=== PATIENT | male | born 1970 | race Caucasian/White ===

== ENCOUNTER 2023-09-24 19:12 | Emergency (ER) | payer MEDICAID ==
[~2023-09-24] VITALS: Ht 177.8 cm; Wt 81.6 kg
[2023-09-24 19:20] VITALS: BP 139/90; PULSE 80; RESP 20; TEMP 97.4; O2SAT 97
[2023-09-24 20:55] LABS: BASOPHILS % (AUTO) 0.2 % (0.0-2.0); HEMATOCRIT 43.8 % (36-52); HEMOGLOBIN 14.1 g/dL (12.0-18.0); LYMPHOCYTES # (AUTO) 0.6 K/uL (2.0-11.5); LYMPHOCYTES % (AUTO) 3.6 % (20.5-51.1); MEAN CORPUSCULAR HEMOGLOBIN 26 pg (27-31); MEAN CORPUSCULAR HGB CONC 32 g/dL (33-37); MEAN CORPUSCULAR VOLUME 82.1 fL (80-94); MONOCYTES # (AUTO) 0.9 K/uL (0.8-1.0); NEUTROPHILS # (AUTO) 13.7 K/uL (1.8-7.7); NEUTROPHILS % (AUTO) 90.2 % (42.2-75.2); PLATELET COUNT (AUTO) 310 K/uL (140-450); RED BLOOD CELL COUNT(AUTO) 5.33 MIL/uL (4.20-6.10); RED CELL DISTRIBUTION WIDTH 21.4 % (11.6-13.7); WHITE BLOOD COUNT (AUTO) 15.2 K/uL (4.8-10.8)
[2023-09-24 21:16] LABS: ALANINE AMINOTRANSFERASE 19 U/L (12-78); ALBUMIN 4.2 g/dL (3.4-5.0); ALKALINE PHOSPHATASE 82 U/L (50-136); ANION GAP 13.6 (8-16); ASPARTATE AMINOTRANSFERASE 14 U/L (15-37); CALCIUM 8.9 mg/dL (8.5-10.1); CARBON DIOXIDE 33.7 mmol/L (21-32); CHLORIDE 93 mmol/L (98-107); GFR ARICAN-AMERICAN 101 mL/min (>90); GFR NON ARICAN-AMERICAN 84 mL/min (>90); GLUCOSE 199 mg/dL (74-106); LIPASE 14 U/L (16-77); POTASSIUM 3.3 mmol/L (3.5-5.1); SODIUM SERUM 137 mmol/L (136-145); TOTAL BILIRUBIN 1.2 mg/dL (0.0-1.0); TOTAL PROTEIN, SERUM 8.4 g/dL (6.4-8.2); UREA NITROGEN, BLOOD 19 mg/dL (7-18)
[2023-09-25] MEDS ORDERED: NACL 0.9% 1,000 ML IV ONE (01:15)
[2023-09-25] MEDS ORDERED: ONDANSETRON 4 MG/2 ML VIAL IVP ONE (01:15)
[2023-09-25] MEDS ORDERED: KETOROLAC 30 MG/ML VIAL IVP ONE (01:15)
[2023-09-25] MEDS ORDERED: MORPHINE SULFATE 4 MG/ML SYR IVP ONE (01:40)
[2023-09-25] MEDS ORDERED: OMEP40EC24 PO (03:00)
[2023-09-25] MEDS ORDERED: ONDA8TAB87 PO (03:00)
[2023-09-25] MEDS ORDERED: IBUP-2213 PO (03:00)
[2023-09-25 03:22] VITALS: BP 99/68; PULSE 79; RESP 16; TEMP 98; O2SAT 95
== END 2023-09-25 03:22 | disposition home or self-care (01) ==
LOC: MED 19:12
DX: R10.13 Epigastric pain (principal); R11.2 Nausea with vomiting, unspecified; R07.9 Chest pain, unspecified; R06.02 Shortness of breath; F17.200 Nicotine dependence, unspecified, uncomplicated; F12.90 Cannabis use, unspecified, uncomplicated; F15.90 Other stimulant use, unspecified, uncomplicated
CPT/HCPCS: 36415; 80053; 83690; 84484; 85025; 96361; 96374; 96375; 99284; J1885; J2270; J2405; J7030

== ENCOUNTER 2023-09-25 06:53 | Inpatient (IN) | payer MEDICAID ==
[~2023-09-25] VITALS: Ht 177.8 cm; Wt 80.7 kg
[~2023-09-25 06:53] MED LIST: IBUP-2213 PO; OMEP40EC24 PO; ONDA8TAB87 PO
[2023-09-25 07:06] VITALS: BP 103/71; PULSE 87; RESP 17; TEMP 97.7; O2SAT 97
[2023-09-25] MEDS ORDERED: DICYCLOMINE HCL LIQUID 20 MG, ALUMINUM HYD/MAG/SIMETHICONE 30 ML, LIDOCAINE VISCOUS 2% ... PO ONE ×3 (07:25)
[2023-09-25] MEDS ORDERED: HALOPERIDOL IM 5 MG/ML VIAL IM ONE (07:25)
[2023-09-25] MEDS ORDERED: DICYCLOMINE HCL LIQUID 10 MG/5 ML UDC ONE (08:11)
[2023-09-25] MEDS ORDERED: ALUMINUM HYD/MAG/SIMETHICONE 30 ML UDC ONE (08:11)
[2023-09-25] MEDS ORDERED: LIDOCAINE MPF 1% 10 ML ONE (09:19)
[2023-09-25] MEDS ORDERED: KETOROLAC 30 MG/ML VIAL IVP ONE (09:40)
[2023-09-25] MEDS ORDERED: NACL 0.9% 1,000 ML IV ONE (09:45)
[2023-09-25] MEDS ORDERED: LIDOCAINE MPF 1% 10 MG/ML VIAL INJ ONE ×2 (10:10→10:25)
[2023-09-25] MEDS ORDERED: VANCOMYCIN 1,000 MG in DEXTROSE 5% 250 ML IV ONE (11:25)
[2023-09-25] MEDS ORDERED: cefTRIAXone 1,000 MG VIAL ONE (11:32)
[2023-09-25] MEDS ORDERED: VANCOMYCIN 1,000 MG VIAL ONE (12:33)
[2023-09-25] MEDS ORDERED: NACL 0.9% 2,000 ML IV ONE (12:35)
[2023-09-25 15:56] LABS: HEMATOCRIT 36.8 % (36-52); LYMPHOCYTES # (AUTO) 0.5 K/uL (2.0-11.5); LYMPHOCYTES % (AUTO) 9.3 % (20.5-51.1); MEAN CORPUSCULAR HEMOGLOBIN 27 pg (27-31); MEAN CORPUSCULAR HGB CONC 33 g/dL (33-37); MEAN CORPUSCULAR VOLUME 81.3 fL (80-94); MONOCYTES # (AUTO) 0.7 K/uL (0.8-1.0); MONOCYTES % (AUTO) 11.3 % (1.7-9.3); NEUTROPHILS # (AUTO) 4.7 K/uL (1.8-7.7); NEUTROPHILS % (AUTO) 79.4 % (42.2-75.2); PLATELET COUNT (AUTO) 189 K/uL (140-450); RED BLOOD CELL COUNT(AUTO) 4.52 MIL/uL (4.20-6.10); RED CELL DISTRIBUTION WIDTH 21.3 % (11.6-13.7); WHITE BLOOD COUNT (AUTO) 5.9 K/uL (4.8-10.8)
[2023-09-25 16:10] LABS: ALBUMIN 2.6 g/dL (3.4-5.0); ANION GAP 10.6 (8-16); CALCIUM 7.3 mg/dL (8.5-10.1); CARBON DIOXIDE 28.8 mmol/L (21-32); CREATININE 1.4 mg/dL (0.6-1.3); POTASSIUM 3.4 mmol/L (3.5-5.1); TOTAL BILIRUBIN 0.8 mg/dL (0.0-1.0); TOTAL PROTEIN, SERUM 5.5 g/dL (6.4-8.2)
[2023-09-25 17:29] LABS: APPEARANCE,URINE CLEAR (CLEAR); BILIRUBIN,URINE 1+ (NEGATIVE); BLOOD, URINE 2+ (NEGATIVE); LEUKOCYTE ESTERASE ,URINE NEGATIVE (NEGATIVE); NITRITE, URINE POSITIVE (NEGATIVE); PROTEIN,URINE 2+ (NEGATIVE); UGLUCOSE NEGATIVE (NEGATIVE); UROBILINOGEN,URINE 0.2 EU/dL (0.2 - 1)
[2023-09-25 17:39] LABS: ICTOTEST NEGATIVE (NEGATIVE)
[2023-09-25 17:41] LABS: BACTERIA,URINE FEW /HPF (None Seen); COLOR,URINE ORANGE (YELLOW); SQUAMOUS EPITHELIAL CELL,UR 0-3 (FEW) /LPF (0-3 (FEW)); WBC,URINE 0-5 /HPF (0-5)
[2023-09-25 19:34] VITALS: O2SAT 100
[2023-09-25 21:56] VITALS: O2SAT 97
[2023-09-26] VITALS (9 sets, daily range): BP systolic 109–120; BP diastolic 65–69; PULSE 72–95; RESP 18–20; TEMP 98.3–98.9; O2SAT 92–100
[2023-09-26] MEDS ORDERED: ONDANSETRON 4 MG/2 ML VIAL IVP PRN (10:10)
[2023-09-26 10:49] LABS: HEMATOCRIT 36.8 % (36-52); HEMOGLOBIN 12.1 g/dL (12.0-18.0); LYMPHOCYTES # (AUTO) 0.2 K/uL (2.0-11.5); LYMPHOCYTES % (AUTO) 3.1 % (20.5-51.1); MEAN CORPUSCULAR HEMOGLOBIN 27 pg (27-31); MEAN CORPUSCULAR HGB CONC 33 g/dL (33-37); MEAN CORPUSCULAR VOLUME 81.7 fL (80-94); MONOCYTES # (AUTO) 0.6 K/uL (0.8-1.0); MONOCYTES % (AUTO) 7.6 % (1.7-9.3); NEUTROPHILS % (AUTO) 89.3 % (42.2-75.2); PLATELET COUNT (AUTO) 182 K/uL (140-450); WHITE BLOOD COUNT (AUTO) 7.8 K/uL (4.8-10.8)
[2023-09-26 11:12] LABS: ANION GAP 10.2 (8-16); CREATININE 0.9 mg/dL (0.6-1.3); POTASSIUM 3.2 mmol/L (3.5-5.1)
[2023-09-26] MEDS: DEXT 5% / NACL 0.45% 1,000 ML IV SCH ×2 (13:00→20:10)
[2023-09-26] MEDS: MORPHINE SULFATE 4 MG/ML SYR IVP PRN ×2 (13:10→20:00)
[2023-09-26] MEDS: CLINDAMYCIN 900MG/D5W PM 50 ML IV SCH ×2 (13:11→20:02)
[2023-09-27] VITALS (9 sets, daily range): BP systolic 112–121; BP diastolic 52–78; PULSE 67–114; RESP 18–19; TEMP 98.2–99.5; O2SAT 94–100
[2023-09-27] MEDS: MORPHINE SULFATE 4 MG/ML SYR IVP PRN ×2 (01:09→13:28)
[2023-09-27] MEDS: CLINDAMYCIN 900MG/D5W PM 50 ML IV SCH ×3 (04:55→20:18)
[2023-09-27] MEDS: DEXT 5% / NACL 0.45% 1,000 ML IV SCH ×2 (06:10→09:23)
[2023-09-27] MEDS ORDERED: POTASSIUM CHLORIDE 10 MEQ TABER PO ONE (06:25)
[2023-09-27 07:02] LABS: BASOPHILS % (AUTO) 0.1 % (0.0-2.0); EOSINOPHILS % (AUTO) 0.1 % (0.0-4.0); HEMATOCRIT 35.7 % (36-52); HEMOGLOBIN 11.9 g/dL (12.0-18.0); LYMPHOCYTES # (AUTO) 0.4 K/uL (2.0-11.5); MEAN CORPUSCULAR HEMOGLOBIN 27 pg (27-31); MEAN CORPUSCULAR HGB CONC 33 g/dL (33-37); MEAN CORPUSCULAR VOLUME 81.6 fL (80-94); MONOCYTES # (AUTO) 0.7 K/uL (0.8-1.0); MONOCYTES % (AUTO) 7.3 % (1.7-9.3); NEUTROPHILS # (AUTO) 8.4 K/uL (1.8-7.7); PLATELET COUNT (AUTO) 215 K/uL (140-450); RED BLOOD CELL COUNT(AUTO) 4.37 MIL/uL (4.20-6.10); RED CELL DISTRIBUTION WIDTH 20.7 % (11.6-13.7); WHITE BLOOD COUNT (AUTO) 9.5 K/uL (4.8-10.8)
[2023-09-27 07:07] LABS: ANION GAP 11.2 (8-16); CALCIUM 7.7 mg/dL (8.5-10.1); CREATININE 0.8 mg/dL (0.6-1.3); POTASSIUM 3.2 mmol/L (3.5-5.1)
[2023-09-27 08:00] LABS: PHOSPHORUS 2.1 mg/dL (2.5-4.9)
[2023-09-27 08:42] LABS: LYMPHOCYTES % (AUTO) 4.3 % (20.5-51.1); NEUTROPHILS % (AUTO) 88.2 % (42.2-75.2)
[2023-09-27] MEDS: MORPHINE SULFATE 2 MG/ML SYR IVP PRN ×2 (09:18→18:44)
[2023-09-27] MEDS ORDERED: POTASSIUM PHOSPHATE 15 MM in NACL 0.9% 250 ML IV SCH (13:00)
[2023-09-28] VITALS: BP 109/74; PULSE 82; PULSE 91; RESP 18; TEMP 97.9; O2SAT 95
[2023-09-28] MEDS: DEXT 5% / NACL 0.45% 1,000 ML IV SCH ×3 (02:10→22:42)
[2023-09-28 04:00] VITALS: BP 118/76; PULSE 83; PULSE 88; RESP 18; TEMP 97.9; O2SAT 97
[2023-09-28] MEDS: MORPHINE SULFATE 4 MG/ML SYR IVP PRN ×4 (05:35→21:27)
[2023-09-28] MEDS: CLINDAMYCIN 900MG/D5W PM 50 ML IV SCH ×3 (05:36→20:57)
[2023-09-28 07:10] LABS: BASOPHILS % (AUTO) 0.1 % (0.0-2.0); EOSINOPHILS % (AUTO) 0.2 % (0.0-4.0); HEMATOCRIT 34.5 % (36-52); HEMOGLOBIN 11.4 g/dL (12.0-18.0); LYMPHOCYTES # (AUTO) 0.5 K/uL (2.0-11.5); LYMPHOCYTES % (AUTO) 4.2 % (20.5-51.1); MEAN CORPUSCULAR HEMOGLOBIN 27 pg (27-31); MEAN CORPUSCULAR HGB CONC 33 g/dL (33-37); MEAN CORPUSCULAR VOLUME 81.1 fL (80-94); MONOCYTES # (AUTO) 1.1 K/uL (0.8-1.0); MONOCYTES % (AUTO) 9.7 % (1.7-9.3); NEUTROPHILS # (AUTO) 10.2 K/uL (1.8-7.7); NEUTROPHILS % (AUTO) 85.8 % (42.2-75.2); PLATELET COUNT (AUTO) 241 K/uL (140-450); RED BLOOD CELL COUNT(AUTO) 4.25 MIL/uL (4.20-6.10); RED CELL DISTRIBUTION WIDTH 20.8 % (11.6-13.7); WHITE BLOOD COUNT (AUTO) 11.9 K/uL (4.8-10.8)
[2023-09-28 08:00] VITALS: BP 107/78; PULSE 82; PULSE 86; RESP 20; TEMP 97.9; O2SAT 98
[2023-09-28 08:03] LABS: ALBUMIN 1.9 g/dL (3.4-5.0); ANION GAP 12.8 (8-16); CALCIUM 7.9 mg/dL (8.5-10.1); CARBON DIOXIDE 26.4 mmol/L (21-32); CREATININE 0.8 mg/dL (0.6-1.3); POTASSIUM 3.2 mmol/L (3.5-5.1); TOTAL BILIRUBIN 0.6 mg/dL (0.0-1.0)
[2023-09-28] MEDS: MORPHINE SULFATE 2 MG/ML SYR IVP PRN ×2 (09:45→15:35)
[2023-09-28 12:00] VITALS: BP 123/78; PULSE 84; PULSE 87; PULSE 89; RESP 20; TEMP 97.5; O2SAT 97
[2023-09-28] MEDS ORDERED: POTASSIUM CHLORIDE 10 MEQ TABER PO PRN (14:15)
[2023-09-28 16:00] VITALS: BP 119/80; PULSE 83; PULSE 84; PULSE 90; RESP 20; TEMP 97.8; O2SAT 97
[2023-09-28] MEDS: PIPERACILLIN/TAZOBACTAM 3.375 GM in DEXTROSE 5% 50 ML IV SCH (17:36)
[2023-09-28] MEDS ORDERED: KCL 20 MEQ IN 100 mL PREMIX 100 ML IV SCH (18:00)
[2023-09-28 20:00] VITALS: BP 113/71; PULSE 83; PULSE 90; PULSE 97; RESP 17; RESP 20; TEMP 97.2; O2SAT 97
[2023-09-28] MEDS: PANTOPRAZOLE 40 MG INJ VIAL IVP SCH (22:39)
[2023-09-29] VITALS (8 sets, daily range): BP systolic 107–134; BP diastolic 66–76; PULSE 62–136; RESP 17–22; TEMP 97.1–98.2; O2SAT 95–100
[2023-09-29] MEDS: PIPERACILLIN/TAZOBACTAM 3.375 GM in DEXTROSE 5% 50 ML IV SCH ×5 (00:12→23:46)
[2023-09-29] MEDS: MORPHINE SULFATE 2 MG/ML SYR IVP PRN ×2 (02:04→21:10)
[2023-09-29] MEDS: CLINDAMYCIN 900MG/D5W PM 50 ML IV SCH ×3 (05:18→21:10)
[2023-09-29] MEDS: MORPHINE SULFATE 4 MG/ML SYR IVP PRN ×2 (06:57→12:14)
[2023-09-29 07:25] LABS: BASOPHILS % (AUTO) 0.3 % (0.0-2.0); EOSINOPHILS # (AUTO) 0.1 K/uL (0-0.4); EOSINOPHILS % (AUTO) 0.5 % (0.0-4.0); HEMOGLOBIN 11.6 g/dL (12.0-18.0); LYMPHOCYTES # (AUTO) 0.5 K/uL (2.0-11.5); LYMPHOCYTES % (AUTO) 4.8 % (20.5-51.1); MEAN CORPUSCULAR HEMOGLOBIN 26 pg (27-31); MEAN CORPUSCULAR HGB CONC 32 g/dL (33-37); MEAN CORPUSCULAR VOLUME 81.7 fL (80-94); MONOCYTES # (AUTO) 1.6 K/uL (0.8-1.0); MONOCYTES % (AUTO) 14.1 % (1.7-9.3); NEUTROPHILS # (AUTO) 8.9 K/uL (1.8-7.7); NEUTROPHILS % (AUTO) 80.3 % (42.2-75.2); PLATELET COUNT (AUTO) 290 K/uL (140-450); RED BLOOD CELL COUNT(AUTO) 4.41 MIL/uL (4.20-6.10); RED CELL DISTRIBUTION WIDTH 20.6 % (11.6-13.7); WHITE BLOOD COUNT (AUTO) 11.1 K/uL (4.8-10.8)
[2023-09-29 07:41] LABS: ANION GAP 11.2 (8-16); CALCIUM 7.6 mg/dL (8.5-10.1); CREATININE 0.8 mg/dL (0.6-1.3); POTASSIUM 3.2 mmol/L (3.5-5.1)
[2023-09-29] MEDS: PANTOPRAZOLE 40 MG INJ VIAL IVP SCH ×2 (08:58→21:10)
[2023-09-29] MEDS: DEXT 5% / NACL 0.45% 1,000 ML IV SCH ×2 (08:58→18:10)
[2023-09-29] MEDS ORDERED: POTASSIUM CHLORIDE 40 MEQ, LIDOCAINE 1% 25 MG in NACL 0.9% 250 ML IV SCH (11:30)
[2023-09-29] MEDS ORDERED: KETOROLAC 30 MG/ML VIAL IVP SCH (14:31)
[2023-09-29] MEDS ORDERED: THIAMINE 200 MG/2 ML VIAL IM ONE (18:10)
[2023-09-29] MEDS ORDERED: FOLIC ACID 5 MG, MULTIVITAMIN-12 10 ML in NACL 0.9% 1,000 ML IV ONE ×2 (18:10→19:00)
[2023-09-29] MEDS ORDERED: MAG SULF 2000 MG/WATER PREMIX 50 ML IV SCH (18:45)
[2023-09-29] MEDS ORDERED: THIAMINE 200 MG/2 ML VIAL IM SCH (18:45)
[2023-09-29] MEDS ORDERED: CLINDAMYCIN 900 MG in DEXTROSE 5% 50 ML IV SCH (21:00)
[2023-09-30] VITALS (17 sets, daily range): BP systolic 93–112; BP diastolic 59–71; PULSE 65–89; RESP 17–20; TEMP 97.1–98.3; O2SAT 98–100
[2023-09-30] MEDS: MORPHINE SULFATE 2 MG/ML SYR IVP PRN ×3 (02:35→19:59)
[2023-09-30] MEDS: CLINDAMYCIN 900MG/D5W PM 50 ML IV SCH ×3 (04:50→20:57)
[2023-09-30] MEDS: DEXT 5% / NACL 0.45% 1,000 ML IV SCH ×2 (04:51→15:00)
[2023-09-30] MEDS: PIPERACILLIN/TAZOBACTAM 3.375 GM in DEXTROSE 5% 50 ML IV SCH ×3 (05:45→16:54)
[2023-09-30 07:12] LABS: BASOPHILS % (AUTO) 0.1 % (0.0-2.0); EOSINOPHILS # (AUTO) 0.1 K/uL (0-0.4); EOSINOPHILS % (AUTO) 1.3 % (0.0-4.0); HEMOGLOBIN 10.2 g/dL (12.0-18.0); LYMPHOCYTES # (AUTO) 0.6 K/uL (2.0-11.5); LYMPHOCYTES % (AUTO) 7.1 % (20.5-51.1); MEAN CORPUSCULAR HEMOGLOBIN 27 pg (27-31); MEAN CORPUSCULAR HGB CONC 33 g/dL (33-37); MEAN CORPUSCULAR VOLUME 80.7 fL (80-94); MONOCYTES % (AUTO) 12.1 % (1.7-9.3); NEUTROPHILS # (AUTO) 6.4 K/uL (1.8-7.7); NEUTROPHILS % (AUTO) 79.4 % (42.2-75.2); PLATELET COUNT (AUTO) 296 K/uL (140-450); RED BLOOD CELL COUNT(AUTO) 3.84 MIL/uL (4.20-6.10); RED CELL DISTRIBUTION WIDTH 20.5 % (11.6-13.7)
[2023-09-30 07:24] LABS: ANION GAP 9.7 (8-16); CALCIUM 7.1 mg/dL (8.5-10.1); CARBON DIOXIDE 29.6 mmol/L (21-32); CREATININE 0.7 mg/dL (0.6-1.3); POTASSIUM 3.3 mmol/L (3.5-5.1)
[2023-09-30] MEDS: MORPHINE SULFATE 4 MG/ML SYR IVP PRN (08:20)
[2023-09-30] MEDS: PANTOPRAZOLE 40 MG INJ VIAL IVP SCH ×2 (08:20→20:54)
[2023-09-30] MEDS ORDERED: LORazepam 2 MG/ML VIAL IVP PRN (10:20)
[2023-09-30] MEDS ORDERED: MIDAZOLAM 2 MG/2 ML VIAL ONE ×2 (17:10→17:30)
[2023-09-30] MEDS ORDERED: DEXAMETHASONE 10 MG/ML VIAL ONE (17:30)
[2023-09-30] MEDS ORDERED: PROPOFOL 200 MG/20 ML VIAL IV ONE ×3 (17:30→18:25)
[2023-09-30] MEDS ORDERED: ONDANSETRON 4 MG/2 ML VIAL ONE ×2 (17:30→18:25)
[2023-09-30] MEDS ORDERED: fentaNYL citrate 0.05 MG/ML - 50mL vial IV ONE (17:30)
[2023-09-30] MEDS ORDERED: LIDOCAINE 1% 500 MG/50 ML VIAL ONE (17:30)
[2023-09-30] MEDS ORDERED: fentaNYL citrate 0.05 MG/ML VIAL ONE (17:45)
[2023-09-30] MEDS ORDERED: METOCLOPRAMIDE 10 MG/2 ML INJ VIAL ONE (18:25)
[2023-09-30] MEDS ORDERED: SODIUM 10 ML ONE (18:26)
[2023-09-30] MEDS ORDERED: PHENYLEPHRINE 10 MG/ML VIAL ONE (18:26)
[2023-09-30] MEDS ORDERED: POTASSIUM CHLORIDE 20% 40 MEQ/15 ML UDC GT ONE (20:10)
[2023-10-01] VITALS (10 sets, daily range): BP systolic 99–115; BP diastolic 59–69; PULSE 77–84; RESP 18; TEMP 98.4–99.1; O2SAT 96–100
[2023-10-01] MEDS: PIPERACILLIN/TAZOBACTAM 3.375 GM in DEXTROSE 5% 50 ML IV SCH ×3 (00:09→11:05)
[2023-10-01] MEDS: DEXT 5% / NACL 0.45% 1,000 ML IV SCH ×2 (00:10→10:58)
[2023-10-01] MEDS: MORPHINE SULFATE 2 MG/ML SYR IVP PRN ×2 (00:11→04:25)
[2023-10-01] MEDS ORDERED: POTASSIUM CHLORIDE 20% 40 MEQ/15 ML UDC GT ONE (00:45)
[2023-10-01] MEDS: CLINDAMYCIN 900MG/D5W PM 50 ML IV SCH ×2 (04:24→12:43)
[2023-10-01 07:12] LABS: BASOPHILS % (AUTO) 0.2 % (0.0-2.0); EOSINOPHILS % (AUTO) 0.4 % (0.0-4.0); HEMOGLOBIN 9.6 g/dL (12.0-18.0); LYMPHOCYTES # (AUTO) 0.7 K/uL (2.0-11.5); LYMPHOCYTES % (AUTO) 8.1 % (20.5-51.1); MEAN CORPUSCULAR HEMOGLOBIN 27 pg (27-31); MEAN CORPUSCULAR HGB CONC 33 g/dL (33-37); MEAN CORPUSCULAR VOLUME 81.4 fL (80-94); MONOCYTES # (AUTO) 1.1 K/uL (0.8-1.0); MONOCYTES % (AUTO) 12.2 % (1.7-9.3); NEUTROPHILS % (AUTO) 79.1 % (42.2-75.2); PLATELET COUNT (AUTO) 349 K/uL (140-450); RED BLOOD CELL COUNT(AUTO) 3.57 MIL/uL (4.20-6.10); WHITE BLOOD COUNT (AUTO) 8.9 K/uL (4.8-10.8)
[2023-10-01 07:31] LABS: ANION GAP 9.4 (8-16); CALCIUM 7.3 mg/dL (8.5-10.1); CARBON DIOXIDE 30.6 mmol/L (21-32); CREATININE 0.8 mg/dL (0.6-1.3)
[2023-10-01] MEDS: PANTOPRAZOLE 40 MG INJ VIAL IVP SCH (08:06)
[2023-10-01] MEDS: SUCRALFATE 1 GM TAB PO SCH ×2 (09:10→12:43)
[2023-10-01] MEDS: MORPHINE SULFATE 4 MG/ML SYR IVP PRN ×2 (09:10→13:37)
[2023-10-01] MEDS ORDERED: SUCR1TAB56 PO (15:20)
[2023-10-01] MEDS ORDERED: [UNRECOGNIZED DRUG - CODE] IV (15:20)
[2023-10-01] MEDS ORDERED: PRO40I IVP (15:20)
[2023-10-01] MEDS ORDERED: PIPE1SOL IV (15:20)
== END 2023-10-01 15:50 | disposition short-term general hospital (02) | DRG 242 ==
LOC: MED 06:53 → MTU 10:03
PROVIDERS: ADMIT Preventive Medicine Preventive Medicine/Occupational Environmental Medicine; ATTEND Preventive Medicine Preventive Medicine/Occupational Environmental Medicine
PROC: 0W9B30Z Drainage of Left Pleural Cavity with Drainage Device, Percutaneous Approach (ICD-10-PCS; principal; 2023-09-25)
PROC: 0D758DZ Dilation of Esophagus with Intraluminal Device, Via Natural or Artificial Opening Endoscopic (ICD-10-PCS; 2023-09-30)
DX: K22.3 Perforation of esophagus (principal); N17.0 Acute kidney failure with tubular necrosis; E43 Unspecified severe protein-calorie malnutrition; J94.2 Hemothorax; J98.2 Interstitial emphysema; J93.83 Other pneumothorax; N13.2 Hydronephrosis with renal and ureteral calculous obstruction; E83.51 Hypocalcemia; E88.09 Other disorders of plasma-protein metabolism, not elsewhere classified; E87.1 Hypo-osmolality and hyponatremia; F15.99 Other stimulant use, unspecified with unspecified stimulant-induced disorder; F10.90 Alcohol use, unspecified, uncomplicated; E87.6 Hypokalemia; F12.90 Cannabis use, unspecified, uncomplicated; F15.90 Other stimulant use, unspecified, uncomplicated; K22.89 Other specified disease of esophagus; Z68.25 Body mass index [BMI] 25.0-25.9, adult; E83.39 Other disorders of phosphorus metabolism; K20.90 Esophagitis, unspecified without bleeding; K44.9 Diaphragmatic hernia without obstruction or gangrene; X58.XXXA Exposure to other specified factors, initial encounter; Y93.9 Activity, unspecified; Y92.9 Unspecified place or not applicable
CPT/HCPCS: 32551; 36415; 71045; 71250; 74220; 76705; 80048; 80053; 81001; 83605; 83735; 84100; 84484; 85025; 85651; 86140; 87040; 87081; 93005; 96361; 96365; 96367; 96372; 99291; 99292; A9153; C9113; J0696; J1100; J1630; J1885; J2001; J2060; J2250; J2270; J2370; J2405; J2543; J2704; J2765; J3010; J3370; J3480; J3490; J7030; J7060; J7120; Q0092; Q9967